=== PATIENT | female | born 1990 | race Caucasian/White ===

== ENCOUNTER → 2022-09-25 | Day surgery (SDC) | payer MEDICAID ==
[~2022-09-25] VITALS: Ht 152.4 cm; Wt 84.8 kg
[~2022-09-25] MED LIST: BUPIVACAINE HCL/PF 0.5% (5MG/ML) 30ML ONE; BUPR300T52 PO; BUSP30TA2 PO; CEFAZOLIN SODIUM 1000MG/VIAL ONE; FENTANYL CITRATE/PF 50MCG/ML 2ML VIAL IV PRN; FENTANYL CITRATE/PF 50MCG/ML 2ML VIAL ONE; FLUT9.9S NS; HYDR-459 PO; HYDROCODONE/ACETAMINOPHEN 5/325MG TABLET PO PRN; HYDROMORPHONE HCL/PF 2MG/ML CPJ IV PRN; KETOROLAC 30MG/ML VIAL ONE; LACTATED RINGERS 1,000 ML IV SCH; MEDR5TAB PO; MEPERIDINE HCL/PF 25MG/ML CPJ IV PRN; MIDAZOLAM HCL 2 MG/2 ML VIAL ONE; NALOXONE HCL 0.4MG/ML VIAL IV PRN; ONDANSETRON HCL 4MG/2ML INJ IV PRN; ONDANSETRON HCL 4MG/2ML INJ ONE; OXYM-15 NS; PROPOFOL 200MG/20ML VIAL IV ONE; SKIN ADHESIVE 0.7 GM EA TOP ONE
[2022-09-25 07:28] LABS: UCG SCREEN NEGATIVE
== END | disposition home or self-care (01) ==
LOC: OR 06:07
PROVIDERS: ATTEND Surgery
DX: L73.2 Hidradenitis suppurativa (principal); E78.00 Pure hypercholesterolemia, unspecified; F41.9 Anxiety disorder, unspecified; F32.9 Major depressive disorder, single episode, unspecified; Z79.899 Other long term (current) drug therapy; Z98.890 Other specified postprocedural states; Z88.0 Allergy status to penicillin; Z88.1 Allergy status to other antibiotic agents
CPT/HCPCS: 11450; 81025; 82962; 88305; J0690; J1885; J2250; J2405; J2704; J3010; J3490

== ENCOUNTER 2022-10-05 23:31 | Emergency (ER) | payer MEDICAID ==
[~2022-10-05] VITALS: Ht 152.4 cm; Wt 86.0 kg
[~2022-10-05 23:31] MED LIST changes: -BUPIVACAINE HCL/PF 0.5% (5MG/ML) 30ML ONE; -CEFAZOLIN SODIUM 1000MG/VIAL ONE; -FENTANYL CITRATE/PF 50MCG/ML 2ML VIAL IV PRN; -FENTANYL CITRATE/PF 50MCG/ML 2ML VIAL ONE; -HYDROCODONE/ACETAMINOPHEN 5/325MG TABLET PO PRN; -HYDROMORPHONE HCL/PF 2MG/ML CPJ IV PRN; -KETOROLAC 30MG/ML VIAL ONE; -LACTATED RINGERS 1,000 ML IV SCH; -MEPERIDINE HCL/PF 25MG/ML CPJ IV PRN; -MIDAZOLAM HCL 2 MG/2 ML VIAL ONE; -NALOXONE HCL 0.4MG/ML VIAL IV PRN; -ONDANSETRON HCL 4MG/2ML INJ IV PRN; -ONDANSETRON HCL 4MG/2ML INJ ONE; -PROPOFOL 200MG/20ML VIAL IV ONE; -SKIN ADHESIVE 0.7 GM EA TOP ONE
[2022-10-06] MEDS ORDERED: KETOROLAC 30MG/ML VIAL IM ONE (01:30)
[2022-10-06 03:15] VITALS: BP 120/74
[2022-10-06] MEDS ORDERED: TOPUD MT (03:35)
== END 2022-10-06 03:43 | disposition home or self-care (01) ==
LOC: ER 23:31
DX: M79.621 Pain in right upper arm (principal); G89.18 Other acute postprocedural pain; Z79.899 Other long term (current) drug therapy; Z88.0 Allergy status to penicillin
CPT/HCPCS: 73030; 96372; 99283; J1885; Z7610

== ENCOUNTER 2022-11-10 20:15 | Emergency (ER) | payer MEDICAID, OTHER ==
[~2022-11-10] VITALS: Ht 152.4 cm; Wt 85.0 kg
[~2022-11-10 20:15] MED LIST changes: +TOPUD MT
[2022-11-10 21:00] VITALS: BP 138/87; O2SAT 100
[2022-11-10] MEDS ORDERED: CLIN-194 MT (22:57)
[2022-11-10 23:00] VITALS: PULSE 84; RESP 17; TEMP 98.4
== END 2022-11-10 23:00 | disposition home or self-care (01) ==
LOC: ER 20:15
DX: T81.30XA Disruption of wound, unspecified, initial encounter (principal); X58.XXXA Exposure to other specified factors, initial encounter; Z88.0 Allergy status to penicillin; Z79.899 Other long term (current) drug therapy
CPT/HCPCS: 81025; 99282